=== PATIENT | female | born 1985 | race Two or more races ===

== ENCOUNTER 2016-12-20 21:40 | Emergency (ER) | payer MEDICAID ==
[~2016-12-20] VITALS: Ht 157.5 cm; Wt 59.0 kg
[2016-12-20 22:05] VITALS: BP 111/70
[2016-12-20 23:12] LABS: Basophils # (auto) 0 uL; Basophils % (auto) 0.2 % (0.0-2.0); CONDITION Y; Eosinophils # (auto) 0.1 uL; Eosinophils % (auto) 0.5 % (0.0-7.0); Hemoglobin 11.8 g/dL (12.2-16.2); Lymphocytes % (auto) 16.9 % (10.0-50.0); Mean Corpuscular Hemoglobin 28.9 pg (28.0-32.0); Mean Corpuscular Hgb Conc. 33.6 g/dL (32.0-36.0); Mean Corpuscular Volume 85.9 fL (80.0-100.0); Mean Platelet Volume 10.8 fL (7.4-10.4); Monocytes # (auto) 0.5 uL; Monocytes % (auto) 4.3 % (0.0-12.0); Neutrophils # (auto) 9.4 uL; Neutrophils % (auto) 78.1 % (37.0-80.0); Platelet Count (auto) 267 10^3/uL (140-450); Red Cell Distribution Width 13.9 % (11.6-16.0)
[2016-12-20 23:17] LABS: BUN/Creatinine Ratio 15.2
[2016-12-20 23:17] LABS: Urine Bilirubin Negative (Negative); Urine Color Yellow (Yellow); Urine Glucose Normal (Normal); Urine Ketone Negative (Negative); Urine Mucus FEW (None Seen); Urine Nitrite Negative (Negative); Urine RBC 28 /hpf (0 - 4); Urine Squamous Epithelial Cell FEW /hpf (<5); Urine Urobilinogen Normal (Negative)
[2016-12-20 23:18] LABS: Albumin 2.7 g/dL (3.4-5.0); Calcium 8.4 mg/dL (8.5-10.1); Magnesium 1.8 mg/dL (1.6-2.6)
[2016-12-20 23:20] LABS: Urine Blood 1+ /uL (Negative)
[2016-12-20 23:25] LABS: Bilirubin, Total 0.3 mg/dL (0.2-1.0); Total Protein 7.3 g/dL (6.4-8.2)
== END 2016-12-21 05:30 | disposition left against medical advice (07) ==
LOC: ER 22:05
DX: R10.9 Unspecified abdominal pain (principal); R11.2 Nausea with vomiting, unspecified; Z53.21 Procedure and treatment not carried out due to patient leaving prior to being seen by health care provider
CPT/HCPCS: 36415; 80053; 81001; 83690; 83735; 84702; 85025

== ENCOUNTER 2019-04-30 09:15 | Observation (INO) | payer MEDICAID ==
[~2019-04-30] VITALS: Ht 157.5 cm; Wt 68.9 kg
[~2019-04-30 09:15] MED LIST: PREN-96 PO
[2019-04-30 09:20] VITALS: BP 124/78
[2019-04-30] MEDS: TERBUTALINE SULFATE 1 MG/ML 1ML VIAL SC SCH (12:07)
[2019-04-30] MEDS: TERBUTALINE SULFATE 1 MG/ML 1ML VIAL SC ONE (12:08)
== END 2019-04-30 13:10 | disposition home or self-care (01) | DRG 566 ==
LOC: ER 09:15 → LDRP 10:12
PROVIDERS: ADMIT Obstetrics & Gynecology; ATTEND Obstetrics & Gynecology
DX: O26.893 Other specified pregnancy related conditions, third trimester (principal); R10.9 Unspecified abdominal pain; Z3A.32 32 weeks gestation of pregnancy
CPT/HCPCS: 59025; 81002; 96372; 99284; G0378; J3105